=== PATIENT | female | born 1970 | race Caucasian/White ===

== ENCOUNTER 2017-06-20 13:56 | Outpatient (CLI) | payer BC, OTHER ==
--- NOTE | 2017-06-20 15:18 | Diagnostic Imaging Report ---
Indication:Thyroid nodule Technique: Grayscale and duplex Doppler imaging of the thyroid gland performed. Comparison: None Findings: Tiny nodule 3 mm noted in the right lobe. Cystic nodule 4 mm in the left lobe noted. The right lobe is 4.6 x 1.3 x 2.0 CM. Left lobe is 4 x 1.3 x 1.6 CM. Impression: Nonspecific small bilateral thyroid nodules as described above.
== END 2017-06-20 15:56 | disposition home or self-care (01) ==
LOC: ULS 13:56
DX: E04.2 Nontoxic multinodular goiter (principal)
CPT/HCPCS: 76536

== ENCOUNTER 2017-06-30 09:08 | Outpatient (CLI) | payer OTHER ==
--- NOTE | 2017-07-01 09:44 | Diagnostic Imaging Report ---
Indications: 47-year-old female with bilateral thyroid nodules, abnormal thyroid-stimulating hormone, recent abnormal thyroid ultrasound Technique: oral administration 249 uCi [id number]. Uptakes taken at 6 hours and 24 hours. Scanning at 6 hours using pinhole collimator Comparison: none Findings: Six hour uptake is 19.3. 24 hour uptake is 20.1. Both values are within normal limits. Scanning demonstrates normal thyroid morphology, size, and uptake, no focal abnormality demonstrated. Impression: Normal thyroid uptakes Normal thyroid scan. No foci of increased or decreased uptake correlate to either of the nodules described on recent thyroid ultrasound. Note, however, that those nodules are both very small, probably below the limits of resolution for thyroid scintigraphy
== END 2017-06-30 11:08 | disposition home or self-care (01) ==
LOC: NUM 09:08
DX: E04.1 Nontoxic single thyroid nodule (principal)
CPT/HCPCS: 78012; A9516

== ENCOUNTER 2017-07-26 10:54 | Emergency (ER) | payer OTHER ==
[~2017-07-26] VITALS: Ht 162.6 cm; Wt 72.6 kg
[2017-07-26] MEDS ORDERED: IBUPROFEN600 MG ORAL (11:33)
[2017-07-26] MEDS ORDERED: ZOFRAN ODT4 MG ORAL (11:33)
[2017-07-26 11:50] VITALS: BP 121/81
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
== END 2017-07-26 11:50 | disposition home or self-care (01) ==
LOC: EMR 11:15
DX: S06.0X0A Concussion without loss of consciousness, initial encounter (principal); V43.52XA Car driver injured in collision with other type car in traffic accident, initial encounter; Y92.410 Unspecified street and highway as the place of occurrence of the external cause
CPT/HCPCS: 99283

== ENCOUNTER 2017-09-18 21:32 | Emergency (ER) | payer OTHER ==
[~2017-09-18] VITALS: Ht 160 cm; Wt 77.1 kg
[~2017-09-18 21:32] MED LIST: IBUPROFEN600 MG ORAL; ZOFRAN ODT4 MG ORAL
[2017-09-18 22:00] VITALS: BP 142/87
[2017-09-18] MEDS ORDERED: Ketorolac 30mg Inj IV ONE (22:15)
--- NOTE | 2017-09-18 22:17 | Emergency Room Report ---
History of Present Illness General Chief Complaint: Abdominal Pain Source: Patient Present Illness HPI Is a 47-year-old female with history of anxiety. Also history of a large fibroid uterus that require myomectomy. She presents with chief complaint of abdominal pain with nausea vomiting diarrhea. Onset for last 2 weeks. Seen her primary care who ran stool samples. Results not known yet. Patient was placed on Cipro for this. Also Bactrim for MRSA of the nose. She said that she's been having increasing pain and fullness. She worried that tumor may be coming back. No longer nauseous or having diarrhea. Pain is 9/10. Better now. Allergies: Coded Allergies: PROCHLORPERAZINE (Verified Allergy, Unknown, Anaphylaxis, 07/26/17) Patient History Past Medical History: see triage record, old chart reviewed, psych hx Past Surgical History: other - Myomectomy Pertinent Family History: none Social History: Denies: smoking Last Menstrual Period: a month ago Now: No Immunizations: other Reviewed Nursing Documentation: PMH: Agreed, PSxH: Agreed Review of Systems Eye: Denies: eye pain, blurred vision ENT: Denies: ear pain, nose congestion, throat swelling Respiratory: Denies: cough, shortness of breath Cardiovascular: Denies: chest pain, palpitations Gastrointestinal: Reports: abdominal pain, diarrhea, nausea, vomiting Musculoskeletal: Denies: back pain, joint pain Skin: Denies: rash Neurological: Denies: headache, numbness Endocrine: Denies: increased thirst, increased urine Hematologic/Lymphatic: Denies: easy bruising All Other Systems: negative except mentioned in HPI Physical Exam Vital Signs Date Time Temp Pulse Resp B/P (MAP) Pulse Ox O2 Delivery O2 Flow Rate FiO2 09/18/17 21:44 98.1 104 16 138/87 98 Room Air vitals normal Sp02 EP Interpretation: reviewed, normal General Appearance: well appearing, no apparent distress, alert Head: normocephalic, atraumatic Eyes: bilateral eye PERRL, bilateral eye EOMI ENT: hearing grossly normal, normal pharynx Neck: full range of motion, supple, no meningismus Respiratory: chest non-tender, lungs clear, normal breath sounds Cardiovascular #1: regular rate, rhythm, no murmur Gastrointestinal: normal bowel sounds, non tender, no mass, no organomegaly, no bruit, non-distended Musculoskeletal: back normal, gait/station normal, normal range of motion Psychiatric: mood/affect normal Skin: warm/dry Medical Decision Making Diagnostic Impression: Primary Impression: Abdominal pain Qualified Codes: R10.84 - Generalized abdominal pain Additional Impression: Constipation Qualified Codes: K59.00 - Constipation, unspecified ER Course Patient present with abdominal pain. No evidence of obstruction or infection. We'll discharge home. Lab Results Impression labs unremarkable CT/MRI/US Diagnostic Results CT/MRI/US Diagnostic Results : Imaging Test Ordered: CT a/p Impression Comparison: None available Liver, gallbladder, pancreas and spleen are unremarkable. Bilateral symmetric renal enhancement. Small nonobstructing left renal calculus. No evidence of hydronephrosis. Probable 1.8 cm left renal cyst. Small fat-containing umbilical hernia. Abundant colonic fecal debris suggesting constipation. No evidence of bowel obstruction or pneumoperitoneum. Appendix not clearly identified. No definite abnormal inflammatory changes or fluid collections. No free fluid. Radiologist: Deangelo Simon MD Study ready at 23:57 and initial results transmitted at 01:19 Last Vital Signs Date Time Temp Pulse Resp B/P (MAP) Pulse Ox O2 Delivery O2 Flow Rate FiO2 09/18/17 21:44 98.1 104 16 138/87 98 Room Air Status: improved Disposition: HOME, SELF-CARE Condition: Stable Scripts Polyethylene Glycol 3350* (MIRALAX*) 17 Gm Powd.pack 17 GM ORAL DAILY for 7 Days, PACKET Prov: CONOR CHING M.D. 09/19/17 Referrals: KELY ROSALES D.O. (PCP) Patient Instructions: Abdominal Pain, Adult Additional Instructions: Followup with your doctor today for results of your culture. Return if worse. CONOR CHING M.D. Sep 18, 2017 22:17
[2017-09-18 22:58] LABS: BASOPHILS % (AUTO) 1.2 % (0.0-2.0); EOSINOPHILS % (AUTO) 1.6 % (0.0-3.0); HEMATOCRIT 40.3 % (37.0-47.0); HEMOGLOBIN 13.6 G/DL (12.0-16.0); MEAN CORPUSCULAR VOLUME 88 FL (80-99); MONOCYTES % (AUTO) 12.7 % (1.0-10.0); NEUTROPHILS % (AUTO) 49.6 % (45.0-75.0); PLATELET COUNT 244 K/UL (150-450); RED BLOOD COUNT 4.59 M/UL (4.20-5.40); RED CELL DISTRIBUTION WIDTH 11.4 % (11.6-14.8); WHITE BLOOD COUNT 7.4 K/UL (4.8-10.8)
[2017-09-18 22:59] LABS: BILIRUBIN, URINE NEGATIVE (NEGATIVE); COLOR,URINE AMBER; GLUCOSE, URINE (UA) NEGATIVE (NEGATIVE); KETONES,URINE NEGATIVE (NEGATIVE); LEUKOCYTE ESTERASE ,URINE 1+ (NEGATIVE); NITRITE,URINE NEGATIVE (NEGATIVE); PH,URINE 6 (4.5-8.0); PROTEIN,URINE 1+ (NEGATIVE); UROBILINOGEN,URINE NORMAL MG/DL (0.0-1.0)
[2017-09-18 23:00] VITALS: BP 138/84
[2017-09-18 23:01] LABS: APPEARANCE,URINE SLIGHTLY CLOUDY
[2017-09-18 23:23] LABS: ANION GAP 7 mmol/L (5-15); BLOOD UREA NITROGEN 12 mg/dL (7-18); CALCIUM 8.9 MG/DL (8.5-10.1); CARBON DIOXIDE 30 MMOL/L (21-32); CHLORIDE 100 MMOL/L (98-107); CREATININE 0.8 MG/DL (0.55-1.30); POTASSIUM 3.4 MMOL/L (3.5-5.1); SODIUM 136 MMOL/L (136-145)
[2017-09-18 23:27] LABS: ALANINE AMINOTRANSFERASE 21 U/L (12-78); ALBUMIN 3.8 G/DL (3.4-5.0); ALBUMIN/GLOBULIN RATIO 1.4 (1.0-2.7); ALKALINE PHOSPHATASE 56 U/L (46-116); ASPARTATE AMINO TRANSFERASE 23 U/L (15-37); BILIRUBIN,TOTAL 0.5 MG/DL (0.2-1.0)
[2017-09-19] VITALS: BP 120/74
[2017-09-19 01:00] VITALS: BP 131/86
[2017-09-19] MEDS ORDERED: Norco 5mg/325mg tab ORAL ONE (01:00)
[2017-09-19] MEDS ORDERED: MIRALAX17 G2 ORAL (01:29)
[2017-09-19 01:44] VITALS: BP 131/86
--- NOTE | 2017-09-19 08:52 | Diagnostic Imaging Report ---
Clinical Indication: Abdominal pain and vomiting Technique: No oral contrast utilized, per emergency room physician request IV administration nonionic contrast. Venous phase spiral acquisition obtained through the abdomen and pelvis. Multiplanar reconstructions were generated. Total dose length product 786.88 mGycm. CTDIvol(s) 15.91 mGy. Dose reduction achieved using automated exposure control Comparison: none Findings: Appendix is not definitely identified, but no findings to suggest acute appendicitis. No evidence of diverticulosis or diverticulitis. No small bowel distention. No free or loculated intraperitoneal air or fluid. There is a tiny fat-containing umbilical hernia The liver, gallbladder, bile ducts, pancreas, spleen, adrenals, right kidney are unremarkable. Left kidney demonstrates a 2 cm cyst. It also demonstrates a 4 mm calculus in the interpolar region collecting system. No mesenteric or retroperitoneal mass or adenopathy. No pelvic mass or adenopathy. The included lung bases demonstrate some posterior dependent atelectatic changes. The bones are unremarkable. Impression: No definite acute abnormality Nonobstructive 4 mm left renal calculus Incidental findings of small fat-containing abdominal hernia, small left renal cyst This agrees with the preliminary interpretation provided overnight by [facility] teleradiology service. The CT scanner at [facility] is accredited by the [employer] and the scans are performed using protocols designed to limit radiation exposure to as low as reasonably achievable to attain images of sufficient resolution adequate for diagnostic evaluation.
== END 2017-09-19 01:45 | disposition home or self-care (01) ==
LOC: EMR 22:00
DX: R10.9 Unspecified abdominal pain (principal); K59.00 Constipation, unspecified; R19.7 Diarrhea, unspecified; R11.2 Nausea with vomiting, unspecified; N85.2 Hypertrophy of uterus; N20.0 Calculus of kidney; K46.9 Unspecified abdominal hernia without obstruction or gangrene; N28.1 Cyst of kidney, acquired
CPT/HCPCS: 36415; 74177; 80053; 81003; 81025; 83690; 85025; 96361; 96374; 99284; J1885; Q9967